=== PATIENT | male | born 1965 | race Caucasian/White ===

== ENCOUNTER → 2016-05-24 | Day surgery (SDC) | payer OTHER ==
[2016-05-22 12:05] VITALS: BP 140/81
[2016-05-22 14:02] LABS: ALANINE AMINOTRANSFERASE 22 U/L (12-78); ALBUMIN 3.8 g/dL (3.4-5.0); ALKALINE PHOSPHATASE 66 U/L (50-136); ASPARTATE AMINO TRANSFERASE 22 U/L (0-35); CALCIUM 8.3 mg/dL (8.4-10.5); CARBON DIOXIDE 30.6 mmol/L (20.0-32); CREATININE SERUM 0.82 mg/dL (0.59-1.40)
[2016-05-22 14:08] LABS: GLUCOSE 35 mg/dL (70-110)
[~2016-05-24] VITALS: Ht 167.6 cm; Wt 70.3 kg
[~2016-05-24] MED LIST: CYCL10TA2 PO; LEVO50TA6 PO; LOSA50TA6 PO; MORP60TA PO; NS 1000ML 1,000 ML IV SCH; NS 1000ML 1,000 ML ONE; PREG75CA PO
== END ==
LOC: SDC 00:11
PROVIDERS: ATTEND Anesthesiology
DX: M51.16 Intervertebral disc disorders with radiculopathy, lumbar region (principal); M12.9 Arthropathy, unspecified; G89.4 Chronic pain syndrome; M62.830 Muscle spasm of back; I10 Essential (primary) hypertension; E03.9 Hypothyroidism, unspecified; E66.3 Overweight; Z68.25 Body mass index [BMI] 25.0-25.9, adult; K74.60 Unspecified cirrhosis of liver; B19.20 Unspecified viral hepatitis C without hepatic coma; F17.210 Nicotine dependence, cigarettes, uncomplicated; Z90.81 Acquired absence of spleen; Z53.8 Procedure and treatment not carried out for other reasons
CPT/HCPCS: 36415; 80053; 93005; J7030